=== PATIENT | male | born 1965 | race African-American/Black ===

== ENCOUNTER 2019-10-26 23:31 | Emergency (ER) | payer OTHER ==
[~2019-10-26] VITALS: Ht 190.5 cm; Wt 90.7 kg
[~2019-10-26 23:31] MED LIST: BUPROPION; CLONAZEPAM; CLONAZEPAM PO; DEPAKOTE PO; LITHIUM; LITHIUM CARBON450 MG PO; MEDLISTUNAVAIL; NOHOMEMEDICATIONS; SEROQUEL; SEROQUEL 100 M100 MG PO
[2019-10-27] MEDS ORDERED: BACTRIM DS TAB1 EACH PO (01:37)
[2019-10-27 03:56] VITALS: BP 136/60
== END 2019-10-27 03:56 | disposition home or self-care (01) ==
LOC: ER 23:31
DX: L03.115 Cellulitis of right lower limb (principal); M25.511 Pain in right shoulder; G89.29 Other chronic pain; M54.2 Cervicalgia; F17.210 Nicotine dependence, cigarettes, uncomplicated; Z88.6 Allergy status to analgesic agent; Z91.010 Allergy to peanuts

== ENCOUNTER 2020-07-04 04:00 | Emergency (ER) | payer OTHER ==
[~2020-07-04 04:00] MED LIST changes: +BACTRIM DS TAB1 EACH PO
== END 2020-07-04 04:31 | disposition home or self-care (01) ==
LOC: ER 04:00
DX: L97.918 Non-pressure chronic ulcer of unspecified part of right lower leg with other specified severity (principal); F91.8 Other conduct disorders; F15.129 Other stimulant abuse with intoxication, unspecified; M79.604 Pain in right leg; R25.2 Cramp and spasm; F32.9 Major depressive disorder, single episode, unspecified; F17.210 Nicotine dependence, cigarettes, uncomplicated; Z79.2 Long term (current) use of antibiotics; Z88.8 Allergy status to other drugs, medicaments and biological substances; Z91.010 Allergy to peanuts